=== PATIENT | female | born 1990 | race African-American/Black ===

== ENCOUNTER 2017-04-07 10:54 | Emergency (ER) | payer OTHER ==
[~2017-04-07] VITALS: Ht 165.1 cm; Wt 65.3 kg
[~2017-04-07 10:54] MED LIST: BACTRIM,SEPT1 TABLET PO; NAPROSYN375 MG PO; NAPROSYN500 MG PO; NAPROXEN500 MG PO; NORCO 5/3251 TABLET PO; ULTRAM50 MG PO
[2017-04-07 10:58] VITALS: BP 110/79
[2017-04-07 11:44] LABS: ADD MIUA? YES; BILIRUBIN NEGATIVE; BLOOD NEGATIVE; COLOR YELLOW ((YELLOW)); GLUCOSE (STRIP) NEGATIVE; KETONES 5; LEUKOCYTES TRACE; NITRITE NEGATIVE; PROTEIN (STRIP) 30; SPECIFIC GRAVITY 1.027 (1.000-1.030)
[2017-04-07 11:47] LABS: INTERNAL CONTROL VALID? YES
[2017-04-07 11:48] LABS: BACTERIA NONE SEEN /HPF; EPITHELIAL CELLS 1+ /HPF; MUCUS TRACE /LPF; RED BLOOD CELLS 0-5 /HPF (0-5); UCUL ADDED? NO; WHITE BLOOD CELLS 0-5 /HPF (0-5)
[2017-04-07] MEDS ORDERED: MOTRIN600 MG PO (12:08)
== END 2017-04-07 12:36 | disposition left against medical advice (07) ==
LOC: EME 10:54
PROVIDERS: Emergency Medicine
DX: S76.012A Strain of muscle, fascia and tendon of left hip, initial encounter (principal); X58.XXXA Exposure to other specified factors, initial encounter; N94.0 Mittelschmerz; Z53.20 Procedure and treatment not carried out because of patient's decision for unspecified reasons
CPT/HCPCS: 81003; 84703; 99281; 99283